=== PATIENT | female | born 1965 | race Caucasian/White ===

== ENCOUNTER 2017-05-18 11:07 | Day surgery (SDC) | payer MEDICARE, OTHER ==
[~2017-05-18] VITALS: Ht 165.1 cm; Wt 92.7 kg
--- NOTE | ~2017-05-18 | OP ---
PATIENT NAME: DENISE HERCULES MEDICAL RECORD: [id number] :61 LOCATION:D.[facility] ADMISSION DATE: SURGEON: MERYL GUEVARA DO OPERATION DATE: 05/18/17 PROCEDURE: Esophagogastroduodenoscopy with biopsies. INDICATION: Epigastric abdominal pain and dysphagia. SCOPE: Pufetto video gastroscope. MEDICATIONS: Propofol IV per anesthesia. (TIVA) ESTIMATED BLOOD LOSS: Minimal. COMPLICATIONS: None. FINDINGS: Informed consent was given. The patient was made comfortable with the above medication. After reaching an adequate level of sedation by slow IV push, the patient was placed on her left side. The endoscope was then advanced under direct visualization through the mouth to the second portion of the duodenum. The upper and middle thirds of the esophagus appeared normal. In the distal third of the esophagus down to the gastroesophageal junction there was moderate evidence of erosive reflux esophagitis (LA class B). The endoscope was advanced beyond the gastroesophageal junction into the stomach and retroflexed to view the cardia where a small sliding hiatal hernia was present. Throughout the body of the stomach and down to the antrum and prepyloric region there was some erythema and granularity. Biopsies were taken to rule out Helicobacter-pylori and to submit for histology. In the Antrum of the stomach there was an ulcer which was superficial and clean based. It did measuring approximately 2 x 1 centimeter in size. There was some bleeding around one edge of the ulcer. Three biopsies were taken along the edge of the ulcer to submit for pathology. The endoscope was advanced beyond the pylorus into the duodenum where the bulb and second portion of the duodenum appeared normal. Random biopsies were taken. The scope was then withdrawn from the patient. The patient tolerated the procedure well. There were no complications. IMPRESSIONS: 1. LA class B reflux induced esophagitis. 2. Small sliding hiatal hernia. 3. Erythema and granularity in the stomach consistent with gastritis, biopsies taken. 4. A single gastric ulcer located in the antrum of the stomach, biopsies taken. PLAN/RECOMMENDATIONS: 1. Discharge home when recovery parameters are met. 2. Follow up on biopsy specimen results. 3. Continue Nexium, but increase to 40 milligrams twice a day. 4. Discontinue Pepcid. 5. Add Carafate suspension 1 gram four times a day times two weeks. 6. Repeat upper endoscopy in eight to ten weeks to document healing of ulceration. OPERATIVE REPORT [id number] DENISE HERCULES NATHAN A DO CC: [id number] DICTATION DATE: 05/18/17 1500 PATENT LEGAL ASSISTANT: DM 05/19/17 1209 [facility] 05/18/17 [facility] [address] [place] [address]
[2017-05-18] MEDS ORDERED: PRINIVIL20 MG PO (13:31)
[2017-05-18] MEDS ORDERED: CATAPRES0.2 MG PO (13:32)
[2017-05-18] MEDS ORDERED: ELIQUIS2.5 MG PO (13:35)
[2017-05-18] MEDS ORDERED: AMITRIPTYLINE150 MG PO (13:36)
[2017-05-18] MEDS ORDERED: TRAZODONE HCL150 MG PO (13:36)
[2017-05-18] MEDS ORDERED: GLUCOPHAGE500 MG PO (13:36)
[2017-05-18] MEDS ORDERED: KLONOPIN1 MG PO (13:37)
[2017-05-18 13:50] VITALS: BP 79/56; Ht 165.1 cm; Wt 92.7 kg
[2017-05-18 14:52] LABS: ANION GAP 12.8 mmol/L (8-16); CALCIUM 9.6 mg/dL (8.5-10.1); CARBON DIOXIDE 30.2 mmol/L (21.0-32.0); CREATININE - SERUM 1.7 mg/dL (0.6-1.3)
[2017-05-18 14:58] LABS: APTT 27.5 SECONDS (22.8-39.4); INR 0.99 (0.85-1.17); PROTIME 12.9 SECONDS (11.6-15.0)
[2017-05-18 15:33] LABS: HEMOGLOBIN 14.5 g/dL (12-16); MCV 90.9 fL (80.0-100.0); RBC 4.84 10x6/uL (4.00-5.40); RDW 13.2 % (11.5-14.5); WBC 8.3 10x3/uL (4.8-10.8)
--- NOTE | 2017-05-18 18:27 | NUR ---
1814 PIV DC W/CATHETER TIP INTACT 1824 DC PT VIA WC ESCORTED OUT TO [facility] W/ DRIVING
== END 2017-05-18 18:25 | disposition home or self-care (01) ==
LOC: D.OPS 11:07
PROVIDERS: Anesthesiology
DX: R10.13 Epigastric pain (principal); R13.10 Dysphagia, unspecified; K25.4 Chronic or unspecified gastric ulcer with hemorrhage; K44.9 Diaphragmatic hernia without obstruction or gangrene; K21.0 Gastro-esophageal reflux disease with esophagitis; F17.200 Nicotine dependence, unspecified, uncomplicated; E11.9 Type 2 diabetes mellitus without complications; Z01.812 Encounter for preprocedural laboratory examination

== ENCOUNTER 2017-05-25 11:41 | Day surgery (SDC) | payer MEDICARE, OTHER ==
[~2017-05-25] VITALS: Ht 165.1 cm; Wt 98.2 kg
[~2017-05-25 11:41] MED LIST: AMITRIPTYLINE150 MG PO; CATAPRES0.2 MG PO; ELIQUIS2.5 MG PO; GLUCOPHAGE500 MG PO; KLONOPIN1 MG PO; PRINIVIL20 MG PO; TRAZODONE HCL150 MG PO
[2017-05-25 12:40] LABS: HEMATOCRIT 43.1 % (36.0-48.0); HEMOGLOBIN 14.2 g/dL (12-16); MCH 30.3 pg (26.0-34.0); MCHC 32.9 g/dL (31.0-37.0); MCV 91.9 fL (80.0-100.0); MEAN PLATELET VOLUME 10.9 fL (7.4-10.4); RBC 4.69 10x6/uL (4.00-5.40); RDW 13.4 % (11.5-14.5)
[2017-05-25 12:49] LABS: ANION GAP 13.4 mmol/L (8-16); CALCIUM 8.6 mg/dL (8.5-10.1); CARBON DIOXIDE 30.2 mmol/L (21.0-32.0); CREATININE - SERUM 1.1 mg/dL (0.6-1.3); POTASSIUM - SERUM 3.6 mmol/L (3.5-5.1)
[2017-05-25 13:20] VITALS: BP 109/58; Ht 165.1 cm; Wt 98.2 kg
[2017-05-25] MEDS ORDERED: LINZESS145 MCG PO (15:13)
--- NOTE | 2017-05-25 15:54 | NUR ---
1500- PT RECEIVED, DRINKING A MOUNTAIN DEW. VSS. NO PAIN REPORTED. FULL LIQUID TRAY OFFERED 1530- PT UP OOB, DRESSED. SHE REMOVED HER OWN IV AND REFUSED VITAL SIGNS. 1535- DISCHARGE INSTRUCTIONS COMPLETED, VERBALIZED UNDERSTANDING. PAPERWORK SIGNED. 1540- PT DISCHARGED VIA WHEELCHAIR WITH .
--- NOTE | 2017-05-28 13:06 | OP ---
PATIENT NAME: DENISE HERCULES MEDICAL RECORD: [id number] :61 LOCATION:D.[facility] ADMISSION DATE: SURGEON: MERYL GUEVARA DO OPERATION DATE: 05/25/17 DATE OF OPERATION: 05/25/2017 PROCEDURE: Colonoscopy with polypectomy. INDICATIONS FOR PROCEDURE: Chronic constipation, hematochezia. SCOPE: Olympus video pediatric colonoscope. MEDICATIONS: Propofol 500 mg IV per anesthesia. WITHDRAWAL TIME: 25 minutes. ESTIMATED BLOOD LOSS: Minimal. COMPLICATIONS: None. FINDINGS: Informed consent was given. The patient was made comfortable with the above medication. After reaching an adequate level of sedation by slow IV push, the patient was placed on her left side. A digital rectal examination was performed and was normal. The endoscope was then advanced under direct visualization through the rectum to the cecum with visualization of the appendiceal orifice and ileocecal valve. The scope was slowly withdrawn and mucosa was carefully examined. The prep was poor to fair, but was able to be irrigated and suctioned until it could be considered good. Visualization of the mucosa was adequate. In the cecum, there was a single polyp which was benign appearing and sessile. It measured approximately 8 mm in diameter. It was removed in 1 piece using a snare cautery. It was completely retrieved. There was a second polyp located in the sigmoid colon, which was benign appearing and sessile. It measured approximately 6-mm in diameter and was completely removed in 1 piece using snare cautery. It was completely retrieved. There were no other polyps visualized. Scope was withdrawn in the rectum and retroflexed to view the rectal wall where some diminutive nonbleeding hemorrhoids were visualized. Scope was then withdrawn from the patient. The patient tolerated the procedure well and there were no complications. IMPRESSION: 1. Two benign appearing polyps as described above. Both were removed with hot snare. 2. Diminutive internal hemorrhoids. PLAN AND RECOMMENDATIONS: 1. Discharge home when recovery parameters are met. 2. High fiber diet. 3. Continue current medications. 4. Start Linzess 145 mcg capsule daily for constipation/IBS-C 5. Follow up in GI clinic as needed. 6. Notify the clinic if constipation is not improved with use of Linzess. 7. Follow up biopsy specimen results. 8. Repeat colonoscopy in 3 years. OPERATIVE REPORT [id number] DENISE HERCULES TRANSINT:[id number] Voice Confirmation ID: [id number] DOCUMENT ID: [id number] MERYL GUEVARA DO at 1306 CC: [id number] DICTATION DATE: 05/25/17 1451 SENIOR ORACLE DEVELOPER: 05/26/17 0117 [facility] 05/25/17 [place] [id number] [place] [id number]
== END 2017-05-25 15:40 | disposition home or self-care (01) ==
LOC: D.OPS 11:41
PROVIDERS: Anesthesiology
DX: K59.09 Other constipation (principal); K92.1 Melena; D12.0 Benign neoplasm of cecum; D12.5 Benign neoplasm of sigmoid colon; K64.8 Other hemorrhoids; Z01.812 Encounter for preprocedural laboratory examination; F17.200 Nicotine dependence, unspecified, uncomplicated; I10 Essential (primary) hypertension; E11.9 Type 2 diabetes mellitus without complications

== ENCOUNTER 2017-07-27 07:10 | Day surgery (SDC) | payer MEDICARE, OTHER ==
[~2017-07-27] VITALS: Ht 165.1 cm; Wt 95.5 kg
--- NOTE | ~2017-07-27 | OP ---
PATIENT NAME: DENISE HERCULES MEDICAL RECORD: [id number] :61 LOCATION:[facility] ADMISSION DATE: SURGEON: MERYL GUEVARA DO DATE OF OPERATION: 07/27/2017 PROCEDURE: EGD with biopsies. INDICATIONS FOR PROCEDURE: History of dysphagia and a gastric ulcer with gastroesophageal reflux disease. SCOPE: Aginova video gastroscope. MEDICATIONS: Propofol 100 mg IV per anesthesia. ESTIMATED BLOOD LOSS: Minimal. COMPLICATIONS: None. FINDINGS: Informed consent was given. The patient was made comfortable with the above medication. After reaching an adequate level of sedation by slow IV push, the patient was placed on her left side. The endoscope was then advanced under direct visualization through the mouth to the second portion of the duodenum. The upper, middle, and lower thirds of the esophagus appeared normal. At the GE junction, there was evidence of LA class B reflux induced esophagitis and possible Meyers esophagus. Two cold forceps biopsies were taken to submit for histopathology. The endoscope was advanced beyond the GE junction into the stomach and retroflexed to view the cardia, where a small sliding hiatal hernia was present. Throughout the entire stomach, there was a large amount of food retention present. This caused visualization difficulties with the stomach. I could see some irritation in the distal antrum likely where the previous ulceration site was. No biopsies were taken on this examination as they were taken last time and this was a benign ulcer. The ulcer is improved, but there is still inflammation present. The endoscope was advanced beyond the pylorus into the duodenum where the bulb and second portion appeared normal. The scope was withdrawn from the patient. The patient tolerated the procedure well and there were no complications. IMPRESSION: 1. Reflux esophagitis grade B and possible Meyers esophagus with biopsies pending. 2. Gastritis in the distal antrum. 3. Significant amount of food retention. PLAN AND RECOMMENDATIONS: 1. Discharge home when recovery parameters are met. 2. Follow up biopsy specimen results. If Meyers's esophagus is present, we will place the patient in surveillance endoscopy protocol. 3. If nausea becomes a persistent symptom for the patient, consider gastric emptying studies considering the amount of food retention visualized on today's examination. 5. Continue current medications and diet with reflux precautions. 6. Follow up in GI clinic as needed. TRANSINT:[id number] Voice Confirmation ID: [id number] DOCUMENT ID: [id number] OPERATIVE REPORT [id number] DENISE HERCULES NATHAN A DO CC: [id number] DICTATION DATE: 07/27/17 1008 CHERRY DIPPER: 07/27/17 1050 [facility] [place] [id number] [place] [id number]
[~2017-07-27 07:10] MED LIST changes: +LINZESS145 MCG PO; -PRINIVIL20 MG PO; +ZESTRIL40 MG PO
[2017-07-27 08:19] LABS: BASOPHILS 0.3 % (0-2); EOSINOPHILS 7.6 % (0-7); HEMATOCRIT 41.7 % (36.0-48.0); HEMOGLOBIN 13.3 g/dL (12-16); LYMPHOCYTES 41.2 % (15-50); MCH 29.6 pg (26.0-34.0); MCHC 31.9 g/dL (31.0-37.0); MCV 92.7 fL (80.0-100.0); MEAN PLATELET VOLUME 9.8 fL (7.4-10.4); MONOCYTES 9.8 % (2-11); NEUTROPHILS 41.1 % (40-80); PLATELET COUNT 159 10x3/uL (130-400); RDW 13.5 % (11.5-14.5); WBC 6.2 10x3/uL (4.8-10.8)
[2017-07-27 08:27] LABS: ANION GAP 7.1 mmol/L (8-16); CALCIUM 9.1 mg/dL (8.5-10.1); CARBON DIOXIDE 34.4 mmol/L (21.0-32.0); CREATININE - SERUM 1.4 mg/dL (0.6-1.3); POTASSIUM - SERUM 4.5 mmol/L (3.5-5.1)
[2017-07-27] MEDS ORDERED: HYDROCHLOROTH12.5 M1 PO (08:47)
[2017-07-27 08:50] VITALS: BP 97/60; Ht 165.1 cm; Wt 95.5 kg
--- NOTE | 2017-07-27 12:18 | NUR ---
1030-RECD FROM GI LAB, DROWSY. 1100-ALERT. FULL LIQUIDS SERVED. 1115-NO NAUSEA, IV D/C 1120-DISCHARGE INSTRUCTIONS REVIEWED. 1125-DRESSED. 1130-D/C HOME VIA WHEELCHAIR WITH SPOUSE
== END 2017-07-27 11:30 | disposition home or self-care (01) ==
LOC: D.OPS 07:10
PROVIDERS: Anesthesiology
DX: K21.0 Gastro-esophageal reflux disease with esophagitis (principal); K29.70 Gastritis, unspecified, without bleeding; K25.9 Gastric ulcer, unspecified as acute or chronic, without hemorrhage or perforation; F17.200 Nicotine dependence, unspecified, uncomplicated; I10 Essential (primary) hypertension; E11.9 Type 2 diabetes mellitus without complications; Z01.812 Encounter for preprocedural laboratory examination